=== PATIENT | male | born 1980 | race Caucasian/White ===

== ENCOUNTER 2020-03-13 16:46 | Emergency (ER) | payer MEDICAID, SELFPAY ==
[2020-03-13 16:46] VITALS: BP 126/55; PULSE 85; RESP 18; TEMP 37; O2SAT 96; BMI 19.3
[2020-03-13 16:55] VITALS: BP 126/55; PULSE 85; RESP 18; TEMP 37; O2SAT 96
--- NOTE | 2020-03-13 17:17 | ED.DCSUM_ITS ---
History of Present Illness Chief Complaint: Fever Informant: Patient Onset: Days - 6 days Context: Gradual Onset Current Severity: Moderate Maximum Severity: Moderate Narrative: Patient presents with fever, chills, cough, congestion progressive since March 08. Patient was released from [facility] on the third. He does state that they were positive Covid patients at his facility. Past Medical History - Allergies and Home Meds Allergies/Adverse Reactions: Allergies No Known Allergies Allergy (Verified 03/13/20 16:48) Past Medical History: None Lives: Spouse/ Significant Other Review of Systems General: Reports: Chills, Fever Eyes: Denies: Visual changes - bilaterally ENT: Denies: Bilateral ear pain Cardiovascular: Reports: Chest pain - Mild chest tightness Respiratory: Reports: Cough. Denies: Sputum Gastrointestinal: Denies: Abdominal pain, Nausea, Vomiting, Diarrhea Musculoskeletal: Reports: Myalgias. Denies: Extremity Pain Skin: Denies: Rash Neurological: Denies: Headache Hematologic: Denies: Easy bruising, Easy bleeding Allergy: Denies: Uticaria Physical Exam Vital Signs/Narrative: Vital Signs Temp Pulse Resp BP Pulse Ox 03/13/20 16:55 98.6 F 85 18 126/55 H 96 03/13/20 16:46 98.6 F 85 18 126/55 H 96 Inital Vital Signs reviewed: Yes General: Well nourished, Well developed Head: Normocephalic ENT: Moist mucous membranes Neck: Supple Cardiovascular: Regular rate, Regular rhythm Respiratory: No distress, CTA bilaterally Abdomen: Soft, Nontender, Normal bowel sounds Extremities: Nontender Skin: Normal color Neurological: Alert, Oriented x3 Psychological: Normal affect Diagnostic/Tx/Re-eval Impressions Chest X-Ray 03/13/20 18:35 IMPRESSION: COPD with mild fibrotic changes. No acute abnormalities. Electronically Signed: Tr Roman MD at 18:52 EDT , Service support , 03/13/20 18:35 Chest 1 View (Portable) [RAD] Stat Laboratory Results 03/13/20 03/13/20 17:14 17:14 WBC 3.2 L RBC 4.45 L Hgb 13.8 Hct 40.8 MCV 91.7 MCH 31.0 MCHC 33.8 RDW Std Deviation 40.9 RDW Coeff of Gary 12.2 Plt Count 224 MPV 8.9 Immature Gran % (Auto) 0.900 Neut % (Auto) 50.1 Lymph % (Auto) 37.3 Fajardo % (Auto) 9.8 Eos % (Auto) 1.3 Baso % (Auto) 0.6 Absolute Neuts (auto) 1.6 L Absolute Lymphs (auto) 1.18 Nucleated RBC % 0 Sodium 139 Potassium 4.6 Chloride 104 Carbon Dioxide 29.0 Anion Gap 6 BUN 16 Creatinine 0.95 Estim Creat Clear Calc 88.63 Est GFR (MDRD) Af Amer 112 Est GFR (MDRD) Non-Af 93 BUN/Creatinine Ratio 16.9 Glucose 69 L Calcium 8.8 - Medical Decision Making Patient had taken ibuprofen shortly prior to arrival. He was afebrile here. I did speak with [facility] and patient was approved for testing. Covid test was sent. Patient was notified that he will be contacted in 2 or 3 days with the test results return. In the meantime treatment is supportive care. He was given return instructions. ED Disposition - Plan for ED Patient: Disposition: Home or Assisted Living Diagnosis: Viral syndrome, Suspected COVID-19 virus infection Instructions: ED Viral Syndrome Referrals: Elizabet Pandey [[facility]] - As Needed
[2020-03-13 18:00] LABS: Absolute Lymphocyte Count 1.18 X10^3/uL (0.83-4.51); Absolute Neutrophil Count 1.6 X10^3/uL (2.0-7.7); Basophil# 0.02 X10^3/uL; Basophil% 0.6 % (0-1); Eosinophil# 0.04 X10^3/uL; Eosinophils% 1.3 % (0-5); Hematocrit 40.8 % (40-54); Hemoglobin 13.8 g/dL (13.0-16.5); Lymphocyte # 1.18 X10^3/ul (4.0); Lymphocyte % 37.3 % (19-41); Mean Corp Hgb Conc 33.8 g/dL (32-36); Mean Corpuscular Volume 91.7 fL (80-94); Mean Platelet Vol. 8.9 fl (6.2-12.0); Monocyte# 0.31 X10^3/uL; Monocyte% 9.8 % (0-10); NRBC Flagged by Analyzer 0 % (0-5); Neutrophil # 1.58 X10^3/uL (2.7-7.7); Neutrophil % 50.1 % (47-70); Platelet Count 224 K/mm3 (150-450); RBC Distribution Width CV 12.2 % (11.6-14.6); RBC Distribution Width SD 40.9 fl (35.1-43.9); Red Blood Count 4.45 M/mm3 (4.6-6.2); White Blood Count 3.2 K/mm3 (4.4-11.0)
[2020-03-13 18:11] LABS: Anion Gap 6 (5-15); BUN 16 mg/dL (7-18); BUN/Creat Ratio 16.9 RATIO (10-20); Calcium,Total 8.8 mg/dL (8.5-10.1); Chloride 104 mmol/L (98-107); Creatinine, Serum 0.95 mg/dL (0.70-1.30); EST Glomerular Filtration Rate 93 mL/min (>60); Est Glom Filt Rate - Afr Amer 112 mL/min (>60); Estimated Creatinine Clearance 88.63 ml/min; Glucose 69 mg/dL (74-106); Potassium 4.6 mmol/L (3.5-5.1); Sodium Level 139 mmol/L (136-145)
--- NOTE | 2020-03-13 18:35 | RAD_ITS ---
STUDY: X-RAY CHEST REASON FOR EXAM: Male, 39 years old. PT WITH Fever, body ACHES AND FATIGUE. STATES JUST RELEASED FROM A HALFWAY WITH POSITIVE COVID 19 TECHNIQUE: Single AP portable view of the chest. COMPARISON: None. FINDINGS: There is hyperinflation of the lungs consistent with chronic obstructive lung disease (COPD). Mild pulmonary scarring changes are seen in the mid and lower lung prince bilaterally. No infiltrates. No effusions. There is no demonstrated pleural abnormality. Normal size heart. Normal mediastinum and [place]. Normal visualized pulmonary arteries. Normal visualized aortic arch and descending thoracic aorta. Normal visualized thoracic spine. Normal visualized ribs, clavicles, and shoulders. There is no demonstrated abnormality of the visualized soft tissue structures of the upper abdomen. RAD/Chest 1 View (Portable) IMPRESSION: COPD with mild fibrotic changes. No acute abnormalities. Electronically Signed: Tr Roman MD at 18:52 EDT , Service support ,
[2020-03-13 19:37] VITALS: BP 114/75; PULSE 81; RESP 18; O2SAT 98
--- NOTE | 2020-03-13 19:38 | ED.RN ---
THIS NURSE REVIEWED D/C INSTRUCTIONS WITH PT. PT VERBALIZED UNDERSTANDING OF INSTRUCTIONS. IV D/C. IV CATHETER INTACT. PT TOLERATED WELL. PT DENIES FURTHER NEEDS OR QUESTIONS AT THIS TIME. PT AMBULATES FROM ROOM ON OWN WITHOUT ASSISTANCE FROM STAFF
--- NOTE | 2020-03-14 10:44 | ED.RN ---
ATTEMPTED MULTIPLE TIMES TO CALL PT AND INFORM HIM OF HIS POSITIVE COVID RESULT. UNABLE TO TALK WITH ANYONE AT THE LISTED PHONE NUMBER NOR WAS I ABLE TO LEACVE A MESSAGE TO CALL BACK BECAUSE IT STATED THE VM WAS NOT SET UP.
== END 2020-03-13 19:40 | disposition home or self-care (01) ==
PROVIDERS: Emergency Provider Emergency Medicine
DX: B34.9 Viral infection, unspecified (principal)
CPT/HCPCS: 71045; 80048; 85025; 87635; 99283; G2023; A4216; U0002; U0004